=== PATIENT | female | born 1995 | race Caucasian/White ===

== ENCOUNTER 2019-08-11 15:36 | Emergency (ER) | payer OTHER ==
[~2019-08-11] VITALS: Ht 154.9 cm; Wt 62.1 kg
[2019-08-11 15:41] VITALS: Ht 154.9 cm; Wt 62.1 kg
[2019-08-11 17:51] VITALS: BP 116/83
== END 2019-08-11 17:54 | disposition home or self-care (01) ==
LOC: ED 15:36
DX: S05.02XA Injury of conjunctiva and corneal abrasion without foreign body, left eye, initial encounter (principal); S05.01XA Injury of conjunctiva and corneal abrasion without foreign body, right eye, initial encounter; X58.XXXA Exposure to other specified factors, initial encounter; Y93.89 Activity, other specified; Y92.89 Other specified places as the place of occurrence of the external cause; Y99.8 Other external cause status
CPT/HCPCS: J1885; Q0162